=== PATIENT | female | born 1960 | race African-American/Black ===

== ENCOUNTER 2024-06-25 10:45 | Inpatient (IN) | payer MEDICARE, MEDICAID, SELFPAY ==
--- NOTE | ~2024-06-25 | MR_ITS ---
EXAMINATION: MR lumbar spine wo con DATE: 06/26/2024 07:41 INDICATION: Right lower limb radicular pain and buckling. Urinary incontinence. TECHNIQUE: Magnetic resonance imaging (MRI) of the lumbar spine was performed without intravenous con trast. Sequences included sagittal T2-weighted FSE, sagittal T2-weighted FS FSE, sagittal T1-weighted FSE, and axial T2-weighted FSE. COMPARISON: And CT dated 06/25/2024 FINDINGS: Alignment is normal. Vertebral body heights are normal. Severe disc height loss at L4-L5 with associa nessa fibrofatty degenerative endplate changes. Signal is otherwise unremarkable. Mild disc height loss at L3-L4 and L5-S1. There are annular fissure s at each of these levels. The conus medullaris terminates at L1. There is normal signal in the cauda l spinal cord. There are change of prior left hemilaminotomies at L4-L5 and L5-S1 with mild scarring in the overlying subcutaneous fat. There is no significant marrow edema at the previously noted L4 pa rs intra-articular is defects suggesting this is more chronic than suspected on the CT imaging. Parav ertebral soft tissues are otherwise unremarkable. The following disc levels are specifically discusse d: T12-L1: The disc does not extend beyond the endplate margin. There is mild left and mild to moderate right facet joint osteoarthritis. There is no neural foraminal stenosis. There is no central canal st enosis. L1-L2: The disc does not extend beyond the endplate margin. There is mild bilateral facet joint osteo arthritis. There is no neural foraminal stenosis. There is no central canal stenosis. L2-L3: Disc is mildly bulging. There is mild bilateral facet joint osteoarthritis. There is mild bila teral neural foraminal stenosis. There is minimal central canal stenosis. L3-L4: Disc is bulging. There is hypertrophy of the ligamentum flavum. There is moderate to severe bi lateral facet joint osteoarthritis. There is mild right and mild to moderate left neural foraminal st enosis. There is mild central canal stenosis. L4-L5: Disc is bulging. There is hypertrophy of the right ligamentum flavum with left-sided posterior decompression with hemilaminotomy. There is severe right and moderate to severe left facet joint ost eoarthritis. There is moderate bilateral neural foraminal stenosis. There is mild central canal steno sis. L5-S1: Disc is bulging. There is mild to moderate bilateral facet joint osteoarthritis. There is mode rate bilateral neural foraminal stenosis. Posterior decompression with left-sided hemilaminotomy. The re is mild central canal stenosis. IMPRESSION: 1. Lumbar spondylosis severe at L4-L5 and otherwise mild with left hemilaminotomies at L4-L5 and L5-S 1. 2. Left-sided L4 pars intra-articular is defects without associated marrow edema suggesting this is c hronic. Reviewed, dictated and finalized at location A. IMPRESSION: 1. Lumbar spondylosis severe at L4-L5 and otherwise mild with left hemilaminoto mies at L4-L5 and L5-S1. 2. Left-sided L4 pars intra-articular is defects without associated marrow sharif a suggesting this is chronic.
--- NOTE | ~2024-06-25 | CT_ITS ---
EXAMINATION: CT lumbar spine wo con DATE: 06/25/2024 14:37 INDICATION: Low back pain radiating down the right leg. Urinary incontinence. TECHNIQUE: Computed tomography (CT) of the lumbar spine was performed without intravenous contrast. A utomated exposure control and iterative reconstruction technique were employed. The dose-length produ ct was 1075.50 mGy-cm. COMPARISON: None FINDINGS: Alignment is normal. Vertebral body heights are normal. Acute appearing nondisplaced unilateral left sided pars interarticularis defect at L4.. Severe disc height loss with degenerative endplate changes at L4-L5. Mild disc height loss at L3-L4 and L5-S1. Moderate disc height loss with vacuum phenomena at the bilateral sacroiliac joints. There is some subarticular sclerosis and tiny erosions along the articular cortices suggesting possible inflammatory sacroiliitis. Small sliding-type hiatal hernia wi th postoperative change of prior sleeve gastrectomy with suture line along the visualized greater cur vature of the stomach. A few atherosclerotic calcifications along the bilateral renal arteries inclu ding at the right renal hilum. Multiple phleboliths along the bilateral gonadal veins. Paravertebral soft tissues are unremarkable. The following disc levels are specifically discussed: T11-T12: The disc does not extend beyond the endplate margin. There is mild bilateral facet joint ost eoarthritis. There is no neural foraminal stenosis. There is no central canal stenosis. T12-L1: The disc does not extend beyond the endplate margin. There is mild bilateral facet joint oste oarthritis. There is no neural foraminal stenosis. There is no central canal stenosis. L1-L2: The disc does not extend beyond the endplate margin. There is mild bilateral facet joint osteo arthritis. There is no neural foraminal stenosis. There is no central canal stenosis. L2-L3: Disc is bulging. There is mild bilateral facet joint osteoarthritis. There is mild bilateral n eural foraminal stenosis. There is mild central canal stenosis. L3-L4: Disc is bulging. There is moderate to severe bilateral facet joint osteoarthritis. There is mi ld to moderate bilateral neural foraminal stenosis. There is mild to moderate central canal stenosis. L4-L5: Disc is bulging. There is mild hypertrophy of the ligamentum flavum. There is severe right an d moderate to severe left facet joint osteoarthritis. There is moderate bilateral neural foraminal st enosis. There is mild central canal stenosis. L5-S1: Disc is bulging most prominent at the bilateral foraminal zones. There is mild left and mild t o moderate right facet joint osteoarthritis. There is moderate bilateral neural foraminal stenosis. T here is no central canal stenosis. IMPRESSION: 1. Severe lower cervical predominant spondylosis. 2. Acute to subacute appearing nondisplaced left-sided pars interarticularis defect at L4. 3. Symmetric moderate bilateral sacroiliitis versus sacroiliac osteoarthritis. Reviewed, dictated and finalized at location A. IMPRESSION: 1. Severe lower cervical predominant spondylosis. 2. Acute to subacute appearing nondisplaced left-sided pars interarticularis de fect at L4. 3. Symmetric moderate bilateral sacroiliitis versus sacroiliac osteoarthritis.
--- NOTE | ~2024-06-25 | US_ITS ---
EXAMINATION: US renal BI DATE: 06/28/2024 19:31 INDICATION: Renal failure. TECHNIQUE: Multiple ultrasound grayscale images of the kidneys were obtained. COMPARISON: Lumbar spine MRI 06/26/2024 FINDINGS: The right kidney measures 12.3 x 4.4 x 4.8 cm. The left kidney measures 10.7 x 5.1 x 3.9 cm. The kidn eys demonstrate normal parenchymal echogenicity. There is no hydronephrosis. The bladder is normal. IMPRESSION: 1. Normal kidneys. No hydronephrosis. Reviewed, dictated and finalized at location A.
[2024-06-25 13:02] VITALS: BP 156/67; PULSE 93; RESP 18; TEMP 36.8; O2SAT 100
[2024-06-25 13:04] VITALS: BP 156/67; PULSE 92; RESP 18; TEMP 36.8; O2SAT 100
--- NOTE | 2024-06-25 14:27 | ED.BACK ---
HPI - Back Pain/Injury General Chief Complaint: Urogenital-Female Stated Complaint: sciatic pain and loss of bladder Time Seen by Provider: 06/25/24 12:57 History of Present Illness HPI Narrative: 63-year-old female presenting with back pain. States that she has a long history of lower back pain with sciatica. States that normally it affects her left side but she recently had an injection and the side feels okay. States that her right lower back has been hurting for the last several days and shoots down her right leg. States that her leg feels like it gives out because it is so painful. States that she has also had a couple episodes of urinary incontinence. States that she feels like she needs to go and then she notices that she has already wet. Complains of chronic unchanged constipation. States that she has had some liquid stool after taking multiple laxative doses. Complains of some tingling in her right thigh but no numbness. No fevers. No further complaints. Related Data Home Medications Medication Instructions Recorded Confirmed acetaminophen 500 mg tablet 500 mg PO Q6H PRN Pain 06/25/24 06/25/24 amlodipine 10 mg tablet 10 mg PO DAILY 06/25/24 06/25/24 atorvastatin 80 mg tablet 80 mg PO DAILY 06/25/24 06/25/24 clonazepam 1 mg tablet 1 mg PO BID 06/25/24 06/25/24 duloxetine 60 mg capsule,delayed 60 mg PO DAILY 06/25/24 06/25/24 release empagliflozin 25 mg tablet 25 mg PO DAILY 06/25/24 06/25/24 (Jardiance) finerenone 10 mg tablet (Kerendia) 10 mg PO DAILY 06/25/24 06/25/24 gabapentin 300 mg capsule 300 mg PO TID 06/25/24 06/25/24 hydroxyzine HCl 25 mg tablet 25 mg PO BID 06/25/24 06/25/24 insulin glargine 100 unit/mL (3 70 unit subcut DAILY 06/25/24 06/25/24 mL) subcutaneous pen (Basaglar Bruno U-100 Insulin) linaclotide 145 mcg capsule 145 mcg PO DAILY 06/25/24 06/25/24 (Linzess) metoprolol succinate 25 mg 25 mg PO DAILY 06/25/24 06/25/24 tablet,extended release 24 hr olmesartan 40 mg tablet 40 mg PO DAILY 06/25/24 06/25/24 omeprazole 40 mg capsule,delayed 40 mg PO BID 06/25/24 06/25/24 release oxycodone-acetaminophen 10 mg-325 1 tablet PO Q6H PRN Pain 06/25/24 06/25/24 mg tablet semaglutide 0.25 mg or 0.5 mg (2 0.5 mg subcut WEEKLY 06/25/24 06/25/24 mg/3 mL) subcutaneous pen injector (HubSpot) trazodone 50 mg tablet 25 mg PO HS 06/25/24 06/25/24 triamcinolone acetonide 0.1 % 1 applic topical BID 06/25/24 06/25/24 topical cream Allergies Allergy/AdvReac Type Severity Reaction Status Date / Time No Known Allergies Allergy Verified 06/25/24 20:00 Review of Systems Review of Systems: All systems reviewed & are unremarkable except as noted in HPI and below PMFSH Family History Family History Mother Hypertension Diabetes mellitus Cerebrovascular accident Social History Social History Smoking status: Never smoker Substance use type: does not use Do You Feel Safe in your Home?: Yes Lack of Transportation: No Lack of Food: Never True Current Housing: I Have Housing Concerned About Future Housing: No Difficulty Paying Gas/Electric Bills: YES Difficulty Paying for Meds: No Currently Unemployed: No Education: High School Diploma/GED Difficulty w/ Childcare or Family Care: No Spiritual care concerns: No Exam Narrative: GENERAL: Well-appearing, in no acute distress, pleasant cooperative HEAD: Normocephalic, atraumatic. EYES: PERRLA and EOMI. ENT: Mucous membranes moist. NECK: Supple. CHEST: No respiratory distress. HEART: Regular rate and rhythm ABDOMEN: Soft, nontender, nondistended BACK: healed midline incision lumbar region; +tenderness over entire lumbar spine extending to bilateral paraspinal musculature and into R buttock EXTREMITIES: Normal range of motion SKIN: Warm, dry, no rash. NEURO: Alert and oriented x3. 5/5 streng
[2024-06-25 14:49] VITALS: BP 167/95; PULSE 79; RESP 16; O2SAT 100
[2024-06-25 15:10] LABS: Add Urine Microscopic? YES; Appearance Urine Clear (Clear); Bacteria Urine 4+ /hpf; Bilirubin Urine Negative (Negative); Blood Urine Negative (Negative); Color Urine Yellow (Yellow); Glucose Urine UA 3+ mg/dL (Negative); Ketones Urine Negative (Negative); Leukocyte Esterase Ur Negative LEU/UL (Negative); Nitrate Urine Negative (Negative); Non Pathogenic Casts 0-2; Protein Urine 3+ mg/dL (Negative); RBC Urine 0-2 /hpf (0-2); Specific Grav Ur 1.024 (1.001-1.035); Squamous Epithelial Cell Urine None Seen /hpf (Few); Urobilinogen Urine 0.2 mg/dL (<2.0); pH Urine 5.5 (5.0-9.0)
[2024-06-25] MEDS: HYDROmorphone HCL INJ (*CRX) 1 MG/ML SYR IV PUSH (15:28)
[2024-06-25] MEDS: KETOROLAC 15 MG/ML VIAL (*BKC) IV PUSH (15:31)
[2024-06-25 15:42] LABS: Basophils Percent Auto 0.5 % (0.2-1.2); Eosinophils Absolute Auto 0.2 K/mm3 (0-0.3); Eosinophils Percent Auto 3.6 % (0-4.4); Hematocrit 38.4 % (37.0-47.0); Hemoglobin 11.8 g/dL (12.0-15.0); Immature Granulocyte Absolute 0.03 K/mm3 (0.00-0.031); Immature Granulocyte Percent A 0.5 % (0-0.5); Lymphocytes Absolute Auto 1.82 K/mm3 (0.9-3.2); Lymphocytes Percent Auto 27.5 % (18.3-44.2); Mean Corpuscular HGB Conc 30.7 g/dl (32-36); Mean Corpuscular Hemoglobin 29.8 pg (26-34); Mean Platelet Volume 8.9 fl (7.4-10.4); Monocytes Absolute Auto 0.5 K/mm3 (0.1-0.6); Monocytes Percent Auto 7.4 % (2.6-8.5); Neutrophils Percent Auto 60.5 % (45.5-73.1); Platelet Count Result 227 k/mm3 (150-375); Red Blood Count 3.96 M/mm3 (4.2-5.4); Red Cell Distribution Width 12.4 % (11.5-14.5); White Blood Count 6.6 K/mm3 (4.5-10.0)
[2024-06-25 15:54] LABS: Anion Gap 5 mmol/L (4-12); Blood Urea Nitrogen 25 mg/dL (7-17); Carbon Dioxide 27 mmol/L (22-30); Chloride 105 mmol/L (98-107); Estimated CRCL calculation 28 ml/min; Estimated Glomerular Filt Rate 29; Glucose 177 mg/dL (65-110); Potassium 4.2 mmol/L (3.4-5.0); Sodium 137 mmol/L (137-145)
[2024-06-25] MEDS: ONDANSETRON INJ 4 MG/2 ML VIAL IV PUSH ×2 (16:14→22:28)
[2024-06-25] MEDS: dexAMETHasone SOD PHOS INJ 10 MG/ML 1 ML VIAL IV PUSH (17:45)
[2024-06-25] MEDS: CEPHALEXIN 500 MG CAPSULE PO (17:45)
[2024-06-25] MEDS: oxyCODONE/ACETAMINOPHEN (*CRX) 5-325 MG TABLET 1 TABLET PO (17:46)
[2024-06-25] MEDS: oxyCODONE HCL (*CRX) 5 MG TAB IR PO (17:46)
[2024-06-25 18:33] VITALS: BP 166/84; PULSE 83; RESP 15; O2SAT 100
--- NOTE | 2024-06-25 18:33 | PC.NURSE ---
Charting by Lucero Tate work study student reviewed, RN agrees
--- NOTE | 2024-06-25 19:43 | PM.IMHP ---
H&P: HPI History of Present Illness Date/Time: 06/25/24 19:43 Chief Complaint: Acute on chronic low back pain with right-sided sciatica, unable to ambulate Narrative: This is a 63-year-old female patient history of insulin-dependent diabetes with chronic kidney disease as well as chronic low back pain with sciatica who is admitted for intractable lower back pain with right leg radicular symptoms. Patient previously had injections on the left side they usually bothers her and now she is having right-sided symptoms. Patient reports that her leg has been buckling out under her causing her to fall. She says that the back pain has led to falls rather than the falls leading to the back pain. Patient also complained of urinary incontinence and chronic constipation. Emergency department discussed neuro surgery stated that patient could get MRI only should consult Neurosurgery if MRI findings were consistent with the need for intervention. Workup in the emergency department also concerning urinalysis UTI. Emergency department attempted to control patient's pain and discharge with follow-up to keep appointment with interventional pain consults but patient reported unable to ambulate despite pain control. Patient admitted for PT OT evaluation. Review of Systems Review of Systems: All systems reviewed & are unremarkable except as noted in HPI and below PMFSH Family History Family History Mother Hypertension Diabetes mellitus Cerebrovascular accident Social History Social History Smoking status: Never smoker Substance use type: does not use Do You Feel Safe in your Home?: Yes Lack of Transportation: No Lack of Food: Never True Current Housing: I Have Housing Concerned About Future Housing: No Difficulty Paying Gas/Electric Bills: YES Difficulty Paying for Meds: No Currently Unemployed: No Education: High School Diploma/GED Difficulty w/ Childcare or Family Care: No Spiritual care concerns: No Meds Home Medications and Allergies Home Medications Medication Instructions Recorded Confirmed Type acetaminophen 500 mg tablet 500 mg PO Q6H PRN Pain 06/25/24 06/25/24 History amlodipine 10 mg tablet 10 mg PO DAILY 06/25/24 06/25/24 History atorvastatin 80 mg tablet 80 mg PO DAILY 06/25/24 06/25/24 History clonazepam 1 mg tablet 1 mg PO BID 06/25/24 06/25/24 History duloxetine 60 mg capsule,delayed 60 mg PO DAILY 06/25/24 06/25/24 History release empagliflozin 25 mg tablet 25 mg PO DAILY 06/25/24 06/25/24 History (Jardiance) finerenone 10 mg tablet (Kerendia) 10 mg PO DAILY 06/25/24 06/25/24 History gabapentin 300 mg capsule 300 mg PO TID 06/25/24 06/25/24 History hydroxyzine HCl 25 mg tablet 25 mg PO BID 06/25/24 06/25/24 History insulin glargine 100 unit/mL (3 70 unit subcut DAILY 06/25/24 06/25/24 History mL) subcutaneous pen (Basaglar KwikPen U-100 Insulin) linaclotide 145 mcg capsule 145 mcg PO DAILY 06/25/24 06/25/24 History (Linzess) metoprolol succinate 25 mg 25 mg PO DAILY 06/25/24 06/25/24 History tablet,extended release 24 hr olmesartan 40 mg tablet 40 mg PO DAILY 06/25/24 06/25/24 History omeprazole 40 mg capsule,delayed 40 mg PO BID 06/25/24 06/25/24 History release oxycodone-acetaminophen 10 mg-325 1 tablet PO Q6H PRN Pain 06/25/24 06/25/24 History mg tablet semaglutide 0.25 mg or 0.5 mg (2 0.5 mg subcut WEEKLY 06/25/24 06/25/24 History mg/3 mL) subcutaneous pen injector (Ozempic) trazodone 50 mg tablet 25 mg PO HS 06/25/24 06/25/24 History triamcinolone acetonide 0.1 % 1 applic topical BID 06/25/24 06/25/24 History topical cream Allergies Allergy/AdvReac Type Severity Reaction Status Date / Time No Known Allergies Allergy Verified 06/25/24 20:00 Vital Signs Vital Signs - 24 hr 06/25/24 13:02 06/25/24 13:04 06/25/24 14:49 T
--- NOTE | 2024-06-25 20:49 | PC.NURSE ---
report given to 3rd taxation economist, all questions answered. DESIRE, AxO4. Pt transferred upstairs with [employer].
[2024-06-25 21:20] VITALS: BP 138/93; PULSE 81; RESP 18; TEMP 36; O2SAT 99
[2024-06-25 21:28] LABS: Hemoglobin A1C 7.7 % (<5.7)
--- NOTE | 2024-06-25 21:28 | ECG_ITS ---
Test Date: 2024-06-25 21:51:03 Measurements Intervals [place] Rate: 71 P: 46 TN: 144 QRS: 7 QRSD: 91 T: 36 QT: 410 QTc: 446 Interpretive Statements SINUS RHYTHM MINIMAL VOLTAGE CRITERIA FOR LVH, CONSIDER NORMAL VARIANT [MEETS CRITERIA IN ONE OF: R(aVL), S(V1), R(V5), R(V5/V6)+S(V1)] NONSPECIFIC T-WAVE ABNORMALITY ABNORMAL ECG. No previous ECG available for comparison Electronically Signed On 06-26-2024 13:50:44 CDT by Sánchez Terrazas M.D.
[2024-06-25 21:49] LABS: Glucose Point of Care 250 mg/dl (65-105)
[2024-06-25] MEDS: hydrOXYzine HCL 25 MG TABLET PO (22:29)
[2024-06-25] MEDS: oxyCODONE/ACETAMINOPHEN (*CRX) 10-325 MG TABLET 1 TAB PO (22:29)
[2024-06-25] MEDS: PANTOPRAZOLE 40 MG TABLET PO (22:29)
[2024-06-25] MEDS: clonazePAM (*CRX) 0.5 MG TABLET 1 MG PO (22:29)
[2024-06-25] MEDS: BELLADONNA ALK/PHENOB ELIX 10 ML, MAG HYDROX/ALUMINUM HYD/SIMETH 30 ML, LIDOCAINE HCL 2... PO (22:30)
[2024-06-25 22:46] LABS: Troponin I 0.014 ng/mL (0.000-0.034)
[2024-06-25] MEDS: GABAPENTIN 300 MG CAPSULE PO (23:09)
[2024-06-25] MEDS: cefTRIAXone 2 GM/NS 100 ML 2 GM/100 ML BAG IVPB (23:09)
[2024-06-26] MEDS: GABAPENTIN 300 MG CAPSULE PO ×3 (05:40→21:37)
[2024-06-26 06:00] VITALS: BP 167/91; PULSE 73; RESP 18; TEMP 36.2; O2SAT 100
[2024-06-26 07:32] LABS: Basophils Percent Auto 0.1 % (0.2-1.2); Hematocrit 41.9 % (37.0-47.0); Hemoglobin 12.7 g/dL (12.0-15.0); Immature Granulocyte Absolute 0.04 K/mm3 (0.00-0.031); Immature Granulocyte Percent A 0.5 % (0-0.5); Lymphocytes Absolute Auto 0.67 K/mm3 (0.9-3.2); Lymphocytes Percent Auto 8.9 % (18.3-44.2); Mean Corpuscular HGB Conc 30.3 g/dl (32-36); Mean Corpuscular Hemoglobin 30.1 pg (26-34); Mean Corpuscular Volume 99.3 fl (80-100); Mean Platelet Volume 8.9 fl (7.4-10.4); Monocytes Absolute Auto 0.2 K/mm3 (0.1-0.6); Monocytes Percent Auto 2.1 % (2.6-8.5); Neutrophils Absolute Auto 6.6 K/mm3 (1.3-6.7); Neutrophils Percent Auto 88.4 % (45.5-73.1); Platelet Count Result 227 k/mm3 (150-375); Red Blood Count 4.22 M/mm3 (4.2-5.4); Red Cell Distribution Width 12.3 % (11.5-14.5); White Blood Count 7.5 K/mm3 (4.5-10.0)
[2024-06-26 07:48] LABS: Alanine Aminotransferase 12 U/L (6-35); Albumin Level 3.8 g/dL (3.5-5.1); Alkaline Phosphatase 87 U/L (38-126); Anion Gap 12 mmol/L (4-12); Aspartate Amino Transferase 17 U/L (14-36); Bilirubin,Total 0.3 mg/dL (0.2-1.3); Blood Urea Nitrogen 30 mg/dL (7-17); Calcium 8.9 mg/dL (8.4-10.2); Carbon Dioxide 17 mmol/L (22-30); Chloride 106 mmol/L (98-107); Estimated CRCL calculation 25 ml/min; Estimated Glomerular Filt Rate 25; Glucose 252 mg/dL (65-110); Magnesium 2.6 mg/dL (1.6-2.3); Potassium 5.5 mmol/L (3.4-5.0); Sodium 135 mmol/L (137-145)
[2024-06-26] MEDS: clonazePAM (*CRX) 0.5 MG TABLET 1 MG PO ×2 (08:37→21:31)
[2024-06-26 08:38] VITALS: PULSE 85
[2024-06-26] MEDS: METOPROLOL SUCCINATE EXT REL 25 MG TABCR PO (08:38)
[2024-06-26] MEDS: PANTOPRAZOLE 40 MG TABLET PO ×2 (08:38→21:31)
[2024-06-26] MEDS: EMPAGLIFLOZIN 25 MG TABLET PO (08:38)
[2024-06-26] MEDS: ATORVASTATIN 40 MG TABLET 80 MG PO (08:38)
[2024-06-26] MEDS: amLODIPine BESYLATE 10 MG TABLET PO (08:38)
[2024-06-26] MEDS: LINACLOTIDE 145 MCG CAPSULE PO (08:38)
[2024-06-26] MEDS: DULoxetine HCL 60 MG CAPSULE.DR PO (08:38)
[2024-06-26] MEDS: ENOXAPARIN 30 MG/0.3 ML SYRINGE SUB-Q (08:41)
[2024-06-26] MEDS: LIDOCAINE 5% PATCH 1 PATCH TRANSDERM (08:42)
[2024-06-26] MEDS: INSULIN ASPART (*BKC) 100 UNITS/ML SUB-Q ×2 (08:46→12:21)
[2024-06-26] MEDS: INSULIN GLARGINE (*BKC) 100 UNITS/ML 70 UNITS SUB-Q (08:47)
[2024-06-26] MEDS: TRIAMCINOLONE ACET 0.1% CREAM 15 GM TUBE 1 APPLIC TOPICAL (08:48)
[2024-06-26 11:40] LABS: Glucose Point of Care 273 mg/dl (65-105)
--- NOTE | 2024-06-26 12:52 | PM.IMPN ---
Progress Note: A&P Assessment and Plan (1) Acute on chronic back pain: Code(s): M54.9 - Dorsalgia, unspecified; G89.29 - Other chronic pain Status: Acute Assessment and Plan: Symptoms consistent with right lumbar radiculopathy IV and oral pain medication PRN PT and OT consult consult neuro surgery MD CT back shows - Severe lower cervical predominant spondylosis. 2. Acute to subacute appearing nondisplaced left-sided pars interarticularis defect at L4. 3. Symmetric moderate bilateral sacroiliitis versus sacroiliac osteoarthritis. MRI back shows- Lumbar spondylosis severe at L4-L5 and otherwise mild with left hemilaminotomies at L4-L5 and L5-S1. 2. 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 (2) Urinary tract infection: Code(s): N39.0 - Urinary tract infection, site not specified Status: Acute Assessment and Plan: Patient initiated on antibiotics in the emergency department Urine culture in process. (3) Insulin dependent diabetes mellitus: Status: Acute Assessment and Plan: Hemoglobin A1c 7.7 Continue home medications High-dose sliding scale insulin Carb controlled diet (4) CKD (chronic kidney disease): Code(s): N18.9 - Chronic kidney disease, unspecified Status: Acute Assessment and Plan: Unknown baseline, Cr 2.1 eGFR 29 on ER labs Hold olmesartan Patient non-compliant with medication, has run out of [facility] for unknown time (5) Unable to ambulate: Code(s): R26.2 - Difficulty in walking, not elsewhere classified Status: Acute Assessment and Plan: Patient reports unable to ambulate due to low back pain with right radicular symptoms PT/ OT ordered Subjective Date/time seen: 06/26/24 12:52 Interval history: 63-year-old female patient history of insulin-dependent diabetes with chronic kidney disease as well as chronic low back pain with sciatica who is admitted for intractable lower back pain with right leg radicular symptoms. mri back shows - 1. Lumbar spondylosis severe at L4-L5 and otherwise mild with left hemilaminotomies at L4-L5 and L5-S1. 2. 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 Pt continues to have radicular complaints I will treat pain and consult neurosurgery MD PT/ OT ordered Review of Systems Review of Systems: Pt continues to have radicular complaints Exam Narrative: GENERAL: middle aged lady in distress HEAD: Normocephalic, atraumatic. EYES: PERRLA and EOMI. ENT: Mucous membranes moist. NECK: Supple. CHEST: No respiratory distress. HEART: Regular rate and rhythm ABDOMEN: Soft, nontender, nondistended BACK: healed midline incision lumbar region; +tenderness over entire lumbar spine extending to bilateral paraspinal musculature and into R buttock EXTREMITIES: positive straight leg test SKIN: Warm, dry, no rash. NEURO: Alert and oriented x3. 5/5 strength in BLE; no sensory deficits PSYCH: Normal mood and affect. Objective Data Vital Signs Vital Signs: Vital Signs - 24 hr 06/25/24 13:02 06/25/24 13:04 06/25/24 14:49 Temperature 36.8 C 36.8 C Pulse Rate 93 92 79 Respiratory Rate 18 18 16 Blood Pressure 156/67 H 156/67 H 167/95 H Pulse Oximetry 100 100 100 Oxygen Delivery Room Air 06/25/24 18:33 06/25/24 21:20 06/25/24 22:04 Temperature 36.0 C L Pulse Rate 83 81 Respiratory Rate 15 18 Blood Pressure 166/84 H 138/93 H Pulse Oximetry 100 99 Oxygen Delivery Room Air 06/26/24 06:00 06/26/24 08:38 06/26/24 08:00 Temperature 36.2 C L Pulse Rate 73 85 Respiratory Rate 18 Blood Pressure 167/91 H Pulse Oximetry 100 Oxygen Delivery Room Air Intake/Output Intake/Output: Intake & Output 06/23/24 06/24/24 06/25/24 06/26/24 23:59 23:59 23:59 23:59 Intake Total 400 Balance 400 Meds/Results Medications: Activ
--- NOTE | 2024-06-26 13:33 | WPDNEUROSGPN ---
Subjective Date/time seen: 06/26/24 13:33 Interval history: Contacted regarding this patient who presented overnight through the Emergency Department with back and leg pain. Pateint has a history of prior lumbar surgery, not at [facility]. She chronically follows with pain mangement. In the ED she was found to have a UTI. She has undergone CT and MR imaging of the [facility] spine that shows lumbar spondylosis with changes from the prior lumbar decompression. There are pars defects as well. There is moderate neuroforaminal stenosis at L4-5 and L5-S1 with hemilaminotomies at this level but no significant central stenosis at any level in the lumbar spine. Patient has been admitted for pain control. I see no urgent indication for surgical intervention given the relatively chronic changes on MRI and particularly given the finding of urinary tract infection. Continue with pain control including pain medication, steroids, neuropathic pain medications and muscle relaxant. It would be reasonable to seek assistance from the patient's outside pain management provider as well. My partner Dr. Gray will see the patient tomorrow and will offer additional recommendations, but even if surgery were to be considered this would be addressed on an outpatient basis. Objective Data Vital Signs Vital Signs: Vital Signs - 24 hr 06/25/24 14:49 06/25/24 18:33 06/25/24 21:20 Temperature 36.0 C L Pulse Rate 79 83 81 Respiratory Rate 16 15 18 Blood Pressure 167/95 H 166/84 H 138/93 H Pulse Oximetry 100 100 99 Oxygen Delivery 06/25/24 22:04 06/26/24 06:00 06/26/24 08:38 Temperature 36.2 C L Pulse Rate 73 85 Respiratory Rate 18 Blood Pressure 167/91 H Pulse Oximetry 100 Oxygen Delivery Room Air 06/26/24 08:00 Temperature Pulse Rate Respiratory Rate Blood Pressure Pulse Oximetry Oxygen Delivery Room Air Intake/Output Intake/Output: Intake & Output 06/23/24 06/24/24 06/25/24 06/26/24 23:59 23:59 23:59 23:59 Intake Total 400 Balance 400 Meds/Results Medications: Active Medications Generic Name Dose Route Start Last Admin Trade Name Freq PRN Reason Stop Dose Admin Acetaminophen 500 mg 06/25/24 20:33 Acetaminophen 500 Mg Tablet PO Q6H PRN Pain 1-6 Amlodipine Besylate 10 mg 06/26/24 09:00 06/26/24 08:38 Amlodipine Besylate 10 Mg Tablet PO 10 mg DAILY SERA Administration Atorvastatin Calcium 80 mg 06/26/24 09:00 06/26/24 08:38 Atorvastatin 40 Mg Tablet PO 80 mg DAILY SERA Administration Clonazepam 1 mg 06/25/24 21:00 06/26/24 08:37 Clonazepam (*Crx) 0.5 Mg Tablet PO 1 mg Q12HR SERA Administration Cyclobenzaprine HCl 5 mg 06/26/24 14:00 Cyclobenzaprine Hcl 5 Mg Tablet PO Q8HR SERA Dextrose 12.5 gm 06/25/24 20:36 Dextrose 50% 25 Gm/50 Ml Syringe IV PUSH PRN PRN Hypoglycemia Protocol Duloxetine HCl 60 mg 06/26/24 09:00 06/26/24 08:38 Duloxetine Hcl 60 Mg Capsule.Dr PO 60 mg DAILY SERA Administration Empagliflozin 25 mg 06/26/24 09:00 06/26/24 08:38 Empagliflozin 25 Mg Tablet PO 25 mg DAILY SERA Administration Enoxaparin Sodium 30 mg 06/26/24 09:00 06/26/24 08:41 Enoxaparin 30 Mg/0.3 Ml Syringe SUB-Q 30 mg DAILY SERA Administration Gabapentin 300 mg 06/25/24 22:20 06/26/24 12:21 Gabapentin 300 Mg Capsule PO 300 mg Q8HR SERA Administration Glucagon 1 mg 06/25/24 20:36 Glucagon For Inj 1 Mg Vial IM PRN PRN Hypoglycemia Protocol Glucose 15 gm 06/25/24 20:36 Glucose Oral Gel 15 Gm Of Glucse In 37.5 Gm Tube PO PRN PRN Hypoglycemia Protocol Hydromorphone HCl 1 mg 06/25/24 22:19 Hydromorphone Hcl Inj (*Crx) 1 Mg/Ml Syr IV PUSH Q4H PRN Pain Rated 7-10 Hydroxyzine HCl 25 mg 06/25/24 20:33 06/25/24 22:29 Hydroxyzine Hcl 25 Mg Tablet PO 25 mg BID PRN Administration anxiety or itching Dextrose 1,0
[2024-06-26 14:00] VITALS: BP 111/59; PULSE 67; RESP 18; TEMP 37; O2SAT 99
[2024-06-26] MEDS: CYCLOBENZAPRINE HCL 5 MG TABLET PO ×2 (15:08→21:37)
[2024-06-26] MEDS: oxyCODONE/ACETAMINOPHEN (*CRX) 10-325 MG TABLET 1 TAB PO (15:10)
[2024-06-26 17:09] LABS: Glucose Point of Care 119 mg/dl (65-105)
[2024-06-26] MEDS: traZODone HCL 25 MG TABLET PO (21:31)
[2024-06-26] MEDS: cefTRIAXone 2 GM/NS 100 ML 2 GM/100 ML BAG IVPB (21:36)
[2024-06-26 21:47] LABS: Glucose Point of Care 168 mg/dl (65-105)
[2024-06-26 22:00] VITALS: BP 115/66; PULSE 72; RESP 18; TEMP 36.7; O2SAT 99
[2024-06-27] MEDS: CYCLOBENZAPRINE HCL 5 MG TABLET PO ×3 (05:31→20:19)
[2024-06-27] MEDS: GABAPENTIN 300 MG CAPSULE PO ×3 (05:32→20:19)
[2024-06-27 06:00] VITALS: BP 149/79; PULSE 71; RESP 18; TEMP 36.6; O2SAT 100
[2024-06-27 07:59] LABS: Glucose Point of Care 89 mg/dl (65-105)
[2024-06-27 08:09] LABS: Alanine Aminotransferase 9 U/L (6-35); Albumin Level 3.3 g/dL (3.5-5.1); Alkaline Phosphatase 61 U/L (38-126); Anion Gap 6 mmol/L (4-12); Aspartate Amino Transferase 17 U/L (14-36); Basophils Percent Auto 0.2 % (0.2-1.2); Bilirubin,Total 0.2 mg/dL (0.2-1.3); Blood Urea Nitrogen 44 mg/dL (7-17); Calcium 8.2 mg/dL (8.4-10.2); Carbon Dioxide 24 mmol/L (22-30); Chloride 105 mmol/L (98-107); Eosinophils Absolute Auto 0.1 K/mm3 (0-0.3); Eosinophils Percent Auto 1.6 % (0-4.4); Estimated CRCL calculation 21 ml/min; Estimated Glomerular Filt Rate 20; Glucose 91 mg/dL (65-110); Hematocrit 36.3 % (37.0-47.0); Hemoglobin 11.1 g/dL (12.0-15.0); Immature Granulocyte Absolute 0.03 K/mm3 (0.00-0.031); Immature Granulocyte Percent A 0.3 % (0-0.5); Lymphocytes Absolute Auto 2.35 K/mm3 (0.9-3.2); Lymphocytes Percent Auto 26.8 % (18.3-44.2); Magnesium 2.5 mg/dL (1.6-2.3); Mean Corpuscular HGB Conc 30.6 g/dl (32-36); Mean Corpuscular Hemoglobin 29.7 pg (26-34); Mean Corpuscular Volume 97.1 fl (80-100); Mean Platelet Volume 9.2 fl (7.4-10.4); Monocytes Absolute Auto 0.6 K/mm3 (0.1-0.6); Monocytes Percent Auto 6.5 % (2.6-8.5); Neutrophils Absolute Auto 5.7 K/mm3 (1.3-6.7); Neutrophils Percent Auto 64.6 % (45.5-73.1); Platelet Count Result 237 k/mm3 (150-375); Potassium 4.7 mmol/L (3.4-5.0); Red Blood Count 3.74 M/mm3 (4.2-5.4); Red Cell Distribution Width 12.4 % (11.5-14.5); Sodium 135 mmol/L (137-145); White Blood Count 8.8 K/mm3 (4.5-10.0)
[2024-06-27] MEDS: clonazePAM (*CRX) 0.5 MG TABLET 1 MG PO ×2 (08:27→20:19)
[2024-06-27 08:28] VITALS: PULSE 82
[2024-06-27] MEDS: PANTOPRAZOLE 40 MG TABLET PO ×2 (08:28→20:19)
[2024-06-27] MEDS: ATORVASTATIN 40 MG TABLET 80 MG PO (08:28)
[2024-06-27] MEDS: LINACLOTIDE 145 MCG CAPSULE PO (08:28)
[2024-06-27] MEDS: LIDOCAINE 5% PATCH 1 PATCH TRANSDERM (08:28)
[2024-06-27] MEDS: EMPAGLIFLOZIN 25 MG TABLET PO (08:28)
[2024-06-27] MEDS: METOPROLOL SUCCINATE EXT REL 25 MG TABCR PO (08:28)
[2024-06-27] MEDS: DULoxetine HCL 60 MG CAPSULE.DR PO (08:29)
[2024-06-27] MEDS: ENOXAPARIN 30 MG/0.3 ML SYRINGE SUB-Q (08:30)
[2024-06-27] MEDS: TRIAMCINOLONE ACET 0.1% CREAM 15 GM TUBE 1 APPLIC TOPICAL ×2 (08:30→20:21)
[2024-06-27] MEDS: INSULIN GLARGINE (*BKC) 100 UNITS/ML 70 UNITS SUB-Q (08:30)
[2024-06-27] MEDS: amLODIPine BESYLATE 10 MG TABLET PO (08:31)
[2024-06-27 09:33] VITALS: O2SAT 100
[2024-06-27 11:39] LABS: Glucose Point of Care 130 mg/dl (65-105)
[2024-06-27] MEDS: oxyCODONE/ACETAMINOPHEN (*CRX) 10-325 MG TABLET 1 TAB PO ×2 (12:16→17:59)
[2024-06-27 14:00] VITALS: BP 104/58; PULSE 70; RESP 14; TEMP 36.6; O2SAT 97
--- NOTE | 2024-06-27 14:05 | PM.IMPN ---
Progress Note: A&P Assessment and Plan (1) Acute on chronic back pain: Code(s): M54.9 - Dorsalgia, unspecified; G89.29 - Other chronic pain Status: Acute Assessment and Plan: Symptoms consistent with right lumbar radiculopathy IV and oral pain medication PRN PT and OT consult consult neuro surgery MD CT back shows - Severe lower cervical predominant spondylosis. 2. Acute to subacute appearing nondisplaced left-sided pars interarticularis defect at L4. 3. Symmetric moderate bilateral sacroiliitis versus sacroiliac osteoarthritis. MRI back shows- Lumbar spondylosis severe at L4-L5 and otherwise mild with left hemilaminotomies at L4-L5 and L5-S1. 2. 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 (2) Urinary tract infection: Code(s): N39.0 - Urinary tract infection, site not specified Status: Acute Assessment and Plan: Patient initiated on antibiotics in the emergency department Urine culture in process. (3) Insulin dependent diabetes mellitus: Status: Acute Assessment and Plan: Hemoglobin A1c 7.7 Continue home medications High-dose sliding scale insulin Carb controlled diet (4) CKD (chronic kidney disease): Code(s): N18.9 - Chronic kidney disease, unspecified Status: Acute Assessment and Plan: Unknown baseline, Cr 2.1 eGFR 29 on ER labs Hold olmesartan Patient non-compliant with medication, has run out of [facility] for unknown time (5) Unable to ambulate: Code(s): R26.2 - Difficulty in walking, not elsewhere classified Status: Acute Assessment and Plan: Patient reports unable to ambulate due to low back pain with right radicular symptoms PT/ OT ordered Subjective Date/time seen: 06/27/24 14:05 Interval history: 63-year-old female patient history of insulin-dependent diabetes with chronic kidney disease as well as chronic low back pain with sciatica who is admitted for intractable lower back pain with right leg radicular symptoms. mri back shows - 1. Lumbar spondylosis severe at L4-L5 and otherwise mild with left hemilaminotomies at L4-L5 and L5-S1. 2. 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 06/26 Pt continues to have radicular complaints, I will treat pain and consult neurosurgery MD PT/ OT ordered 06/27 Pt awaiting further neurosurgery opinions continue pain control and PT in hospital pt still in pain Review of Systems Review of Systems: ongoing sciatic pains down leg Exam Narrative: GENERAL: middle aged lady in distress HEAD: Normocephalic, atraumatic. EYES: PERRLA and EOMI. ENT: Mucous membranes moist. NECK: Supple. CHEST: No respiratory distress. HEART: Regular rate and rhythm ABDOMEN: Soft, nontender, nondistended BACK: healed midline incision lumbar region; +tenderness over entire lumbar spine extending to bilateral paraspinal musculature and into R buttock EXTREMITIES: positive straight leg test SKIN: Warm, dry, no rash. NEURO: Alert and oriented x3. 5/5 strength in BLE; no sensory deficits PSYCH: Normal mood and affect. Objective Data Vital Signs Vital Signs: Vital Signs - 24 hr 06/26/24 14:40 06/26/24 22:00 06/27/24 06:00 Temperature 36.7 C 36.6 C Pulse Rate 72 71 Respiratory Rate 18 18 Blood Pressure 115/66 149/79 H Pulse Oximetry 99 100 Oxygen Delivery Room Air 06/27/24 08:28 06/27/24 09:33 06/27/24 08:00 Temperature Pulse Rate 82 Respiratory Rate Blood Pressure Pulse Oximetry 100 Oxygen Delivery Room Air Room Air Intake/Output Intake/Output: Intake & Output 06/24/24 06/25/24 06/26/24 06/27/24 23:59 23:59 23:59 23:59 Intake Total 2130 336 Balance 2130 336 Meds/Results Medications: Active Medications Generic Name Dose Route Start Last Admin Trade Name Freq PRN Reason Stop Dose Admin Acetaminophen 500 mg
[2024-06-27 16:41] LABS: Glucose Point of Care 134 mg/dl (65-105)
--- NOTE | 2024-06-27 17:55 | WPDNEUROSGCN ---
Assessment and Plan Assessment and plan (1) Lumbar radiculopathy: Code(s): M54.16 - Radiculopathy, lumbar region Status: Acute (2) Lumbar spondylosis: Code(s): M47.816 - Spondylosis without myelopathy or radiculopathy, lumbar region Status: Acute Plan Ms. Domingo is a 63-year-old female with history of previous left L4-5 and L5-S1 laminectomies and a long history of back and bilateral leg pain who was admitted 2 days ago for intractable right leg pain radiating in an L5 dermatome. On physical exam, she does have slight pain limited proximal weakness of the right leg but has good strength distally. I reviewed her MRI lumbar spine which shows degenerative disc disease at L4-5 and L5-S1 with moderate neuroforaminal stenosis bilaterally at L4-5, moderate left neuroforaminal stenosis at L5-S1, and severe right neuroforaminal stenosis at L5-S1. These changes are all chronic and degenerative in nature, and I do not see findings to explain her sudden exacerbation of pain. I have recommended working with physical therapy and discussing additional injections with her pain management team. I would suggest attempting a right L5-S1 transforaminal epidural steroid injection as I believe that this is the cause of her current symptoms. In the meantime, I would consider giving her a course oral steroids as well as a muscle relaxer and consider increasing her gabapentin dose to see if this can help control her pain in the meantime. I do not see any need for urgent surgical intervention. She can certainly follow up with me in clinic if desired, or she can return to Dr. Lau who did her previous surgery. Consult date: 06/27/24 HPI: Malou Domingo is a 63 year old female with history of diabetes and CKD presents to the hospital June 25 for uncontrolled back and primarily right leg pain. She has a long history of lower back issues and underwent previous surgery in the form of left L4-5 and L5-S1 hemilaminectomies with Dr. Lau at [facility] around 2019. The patient states that this was not helpful for her and actually made her pain worse. She has had ongoing low back and intermittent leg pain on both the left and right side for which she has recently been following with Pain Management. She apparently had an epidural steroid injection on the left side last week, and following the injection, she had worse pain than usual in her right leg radiating in what sounds like an L5 dermatome. She has paresthesias in a similar distribution. She feels a sense of generalized weakness but denies focal weakness in her legs. She has been voiding independently but has not had a bowel movement in 2 weeks. Normally, she takes oxycodone 10 mg once or twice a day. Review of Systems Review of Systems: All systems reviewed & are unremarkable except as noted in HPI and below PMFSH Family History Family History Mother Hypertension Diabetes mellitus Cerebrovascular accident Social History Social History Smoking status: Never smoker Substance use type: does not use Do You Feel Safe in your Home?: Yes Lack of Transportation: No Lack of Food: Never True Current Housing: I Have Housing Concerned About Future Housing: No Difficulty Paying Gas/Electric Bills: YES Difficulty Paying for Meds: No Currently Unemployed: No Education: High School Diploma/GED Difficulty w/ Childcare or Family Care: No Spiritual care concerns: No Meds Home Medications and Allergies Home Medications Medication Instructions Recorded Confirmed Type acetaminophen 500 mg tablet 500 mg PO Q6H PRN Pain 06/25/24 06/25/24 History amlodipine 10 mg tablet 10 mg PO DAILY 06/25/24 06/25/24 History atorvastatin 80 mg tablet 80 mg PO DAILY 06/25/24 06/25/24 History clonazepam 1 mg tablet 1 mg PO BID 06/25/24 06/25/24 History
[2024-06-27 20:01] LABS: Glucose Point of Care 202 mg/dl (65-105)
[2024-06-27] MEDS: traZODone HCL 25 MG TABLET PO (20:19)
[2024-06-27 20:29] VITALS: BP 94/47; PULSE 69; RESP 14; TEMP 36.5; O2SAT 96
[2024-06-27] MEDS: CEPHALEXIN 250 MG CAPSULE PO (21:18)
[2024-06-28 05:15] VITALS: BP 116/66; PULSE 72; RESP 18; TEMP 36.5; O2SAT 96
[2024-06-28] MEDS: GABAPENTIN 300 MG CAPSULE PO (06:18)
[2024-06-28] MEDS: CYCLOBENZAPRINE HCL 5 MG TABLET PO (06:18)
[2024-06-28 07:02] LABS: Basophils Percent Auto 0.1 % (0.2-1.2); Eosinophils Absolute Auto 0.2 K/mm3 (0-0.3); Eosinophils Percent Auto 2.9 % (0-4.4); Hematocrit 39.4 % (37.0-47.0); Hemoglobin 11.9 g/dL (12.0-15.0); Immature Granulocyte Absolute 0.02 K/mm3 (0.00-0.031); Immature Granulocyte Percent A 0.3 % (0-0.5); Lymphocytes Absolute Auto 2.16 K/mm3 (0.9-3.2); Lymphocytes Percent Auto 28.2 % (18.3-44.2); Mean Corpuscular HGB Conc 30.2 g/dl (32-36); Mean Corpuscular Hemoglobin 29.6 pg (26-34); Mean Platelet Volume 8.6 fl (7.4-10.4); Monocytes Absolute Auto 0.9 K/mm3 (0.1-0.6); Monocytes Percent Auto 11.5 % (2.6-8.5); Neutrophils Absolute Auto 4.4 K/mm3 (1.3-6.7); Platelet Count Result 237 k/mm3 (150-375); Red Blood Count 4.02 M/mm3 (4.2-5.4); Red Cell Distribution Width 12.6 % (11.5-14.5); White Blood Count 7.7 K/mm3 (4.5-10.0)
[2024-06-28 07:14] LABS: Anion Gap 7 mmol/L (4-12); Blood Urea Nitrogen 56 mg/dL (7-17); Carbon Dioxide 24 mmol/L (22-30); Chloride 105 mmol/L (98-107); Estimated CRCL calculation 19 ml/min; Potassium 5.1 mmol/L (3.4-5.0); Sodium 136 mmol/L (137-145)
[2024-06-28 07:15] LABS: Alanine Aminotransferase 9 U/L (6-35); Albumin Level 3.6 g/dL (3.5-5.1); Alkaline Phosphatase 69 U/L (38-126); Aspartate Amino Transferase 19 U/L (14-36); Bilirubin,Total 0.3 mg/dL (0.2-1.3); Calcium 8.5 mg/dL (8.4-10.2); Estimated Glomerular Filt Rate 18; Glucose 69 mg/dL (65-110); Magnesium 2.6 mg/dL (1.6-2.3)
[2024-06-28 07:29] LABS: Glucose Point of Care 85 mg/dl (65-105)
[2024-06-28 10:04] VITALS: PULSE 72
[2024-06-28] MEDS: CEPHALEXIN 250 MG CAPSULE PO ×2 (10:04→20:48)
[2024-06-28] MEDS: clonazePAM (*CRX) 0.5 MG TABLET 1 MG PO ×2 (10:04→20:47)
[2024-06-28] MEDS: METOPROLOL SUCCINATE EXT REL 25 MG TABCR PO (10:04)
[2024-06-28] MEDS: EMPAGLIFLOZIN 25 MG TABLET PO (10:05)
[2024-06-28] MEDS: PANTOPRAZOLE 40 MG TABLET PO ×2 (10:05→20:47)
[2024-06-28] MEDS: LINACLOTIDE 145 MCG CAPSULE PO (10:05)
[2024-06-28] MEDS: ATORVASTATIN 40 MG TABLET 80 MG PO (10:05)
[2024-06-28] MEDS: amLODIPine BESYLATE 10 MG TABLET PO (10:05)
[2024-06-28] MEDS: ENOXAPARIN 30 MG/0.3 ML SYRINGE SUB-Q (10:06)
[2024-06-28] MEDS: DULoxetine HCL 60 MG CAPSULE.DR PO (10:06)
[2024-06-28] MEDS: LIDOCAINE 5% PATCH 1 PATCH TRANSDERM (10:06)
[2024-06-28] MEDS: INSULIN GLARGINE (*BKC) 100 UNITS/ML 40 UNITS SUB-Q (10:31)
[2024-06-28 11:50] LABS: Glucose Point of Care 84 mg/dl (65-105)
--- NOTE | 2024-06-28 13:33 | PM.IMPN ---
Progress Note: A&P Assessment and Plan (1) Acute on chronic back pain: Code(s): M54.9 - Dorsalgia, unspecified; G89.29 - Other chronic pain Status: Acute (2) Urinary tract infection: Code(s): N39.0 - Urinary tract infection, site not specified Status: Acute (3) Insulin dependent diabetes mellitus: Status: Acute (4) CKD (chronic kidney disease): Code(s): N18.9 - Chronic kidney disease, unspecified Status: Acute (5) Unable to ambulate: Code(s): R26.2 - Difficulty in walking, not elsewhere classified Status: Acute Plan This is a 63-year-old female who presents with intractable lower back pain with right leg radicular symptoms. History of lumbar surgery in the past. Normally she has pain on her left side and recently had an injection which helped. She is supposed to follow-up with her pain doctor however was hurting since/several days on the right side and hence came to the ED for evaluation. She also complained of chronic constipation. No fever no chest pain or shortness of breath. Her vitals were stable in the ED evaluation. No urinary retention noted. 63-year-old female patient history of insulin-dependent diabetes with chronic kidney disease as well as chronic low back pain with sciatica who is admitted for intractable lower back pain with right leg radicular symptoms. Laboratory workup was unremarkable except for renal function does have underlying chronic kidney disease stage 3-4 with creatinine of 2.[address] lumbar showed severe lower several predominance spondylosis subacute appearing nondisplaced left sided partial interarticularis defect moderate bilateral sacroiliitis. Pain control with IV Dilaudid and oral oxycodone PT OT has been consulted Urinalysis suggestive of UTI on Keflex. Urine culture with E coli. Neurosurgery was consulted. Lumbar MRI done which showed lumbar spondylosis severe at L4-L5 and otherwise mild with left michelle laminectomies at L4-L5 and L5-S1. Left L4 pars intra-articular defect without associated marrow edema suggesting chronic. No indication for surgical intervention per Neurosurgery. Insulin-dependent diabetes mellitus A1c 7.7 BENY and CKD baseline creatinine 2.1. Hold olmesartan. Ambulatory dysfunction due to low back pain. Will add steroid pack, increase gabapentin continue on Flexeril Subjective Date/time seen: 06/28/24 13:33 Interval history: Patient continues to have right low back pain that radiates down her leg. Labs reviewed. Denies any new other complaint. Daughter at bedside. Discussed with her. Review of Systems Review of Systems: All systems reviewed & are unremarkable except as noted in HPI and below Exam Narrative: GENERAL: middle aged lady in no acute distress ambulating with walker HEAD: Normocephalic, atraumatic. EYES: PERRLA and EOMI. ENT: Mucous membranes moist. NECK: Supple. CHEST: No respiratory distress. HEART: Regular rate and rhythm ABDOMEN: Soft, nontender, nondistended BACK: healed midline incision lumbar region; +tenderness over entire lumbar spine extending to bilateral paraspinal musculature and into R buttock EXTREMITIES: No edema cyanosis or clubbing SKIN: Warm, dry, no rash. NEURO: Alert and oriented x3. 5/5 strength in BLE; no sensory deficits PSYCH: Normal mood and affect. Objective Data Vital Signs Vital Signs: Vital Signs - 24 hr 06/27/24 14:00 06/27/24 20:29 06/28/24 05:15 Temperature 97.8 F 97.7 F 97.7 F Pulse Rate 70 69 72 Respiratory Rate 14 14 18 Blood Pressure 104/58 L 94/47 L 116/66 Pulse Oximetry 97 96 96 06/28/24 10:04 Temperature Pulse Rate 72 Respiratory Rate Blood Pressure Pulse Oximetry Intake/Output Intake/Output: Intake & Output 06/25/24 06/26/24 06/27/24 06/28/24 23:59 23:59 23:59 23:59 Intake Total 2130 924 820 Balance 2130 924 820 Meds/Results Medications: Active Medications Generic Name Dose Route Start Last Ad
[2024-06-28 14:00] VITALS: BP 122/70; PULSE 80; RESP 18; TEMP 36.6; O2SAT 100
[2024-06-28 16:31] LABS: Glucose Point of Care 82 mg/dl (65-105)
[2024-06-28] MEDS: methylPREDNISolone (MEDROL) DOSEPACK 4 MG TABLETS PO ×4 (16:39→20:46)
[2024-06-28] MEDS: SODIUM CHLORIDE 0.9% IV 1,000 ML 100 ML IV CONT (16:39)
[2024-06-28 17:44] LABS: Creatinine Urine 107.4 mg/dL; Urea Random Urine 743 MG/DL
[2024-06-28 17:48] LABS: Sodium Urine Random 49 meq/L
[2024-06-28 18:36] LABS: Add Urine Microscopic? YES; Appearance Urine Cloudy (Clear); Bacteria Urine None Seen /hpf; Bilirubin Urine Negative (Negative); Blood Urine Negative (Negative); Color Urine Yellow (Yellow); Glucose Urine UA 3+ mg/dL (Negative); Ketones Urine Negative (Negative); Leukocyte Esterase Ur 1+ LEU/UL (Negative); Need Manual Microscopic Reviewed; Nitrate Urine Negative (Negative); Non Pathogenic Casts 0-2; Protein Urine 2+ mg/dL (Negative); RBC Urine 0-2 /hpf (0-2); Specific Grav Ur 1.022 (1.001-1.035); Squamous Epithelial Cell Urine Occasional /hpf (Few); Urobilinogen Urine 0.2 mg/dL (<2.0); WBC Urine 21-50 /hpf (0-3)
[2024-06-28 18:58] LABS: Eosinophil Urine None Seen % (None Seen); Urine Eos QC 2nd Tech Confirmed
[2024-06-28 20:27] LABS: Glucose Point of Care 182 mg/dl (65-105)
[2024-06-28] MEDS: traZODone HCL 25 MG TABLET PO (20:47)
[2024-06-28] MEDS: TRIAMCINOLONE ACET 0.1% CREAM 15 GM TUBE 1 APPLIC TOPICAL (20:48)
[2024-06-28 21:37] VITALS: BP 149/81; PULSE 85; RESP 18; TEMP 36.8; O2SAT 100
[2024-06-28] MEDS: GABAPENTIN 400 MG CAPSULE PO (22:24)
[2024-06-28] MEDS: CYCLOBENZAPRINE HCL 10 MG TABLET PO (22:25)
[2024-06-29] MEDS: SODIUM CHLORIDE 0.9% IV 1,000 ML 100 ML IV CONT (06:28)
[2024-06-29] MEDS: CYCLOBENZAPRINE HCL 10 MG TABLET PO ×3 (06:28→21:57)
[2024-06-29] MEDS: GABAPENTIN 400 MG CAPSULE PO ×3 (06:28→22:11)
[2024-06-29 06:30] LABS: Basophils Percent Auto 0.2 % (0.2-1.2); Eosinophils Percent Auto 0.2 % (0-4.4); Hematocrit 36.2 % (37.0-47.0); Hemoglobin 11.1 g/dL (12.0-15.0); Immature Granulocyte Absolute 0.03 K/mm3 (0.00-0.031); Immature Granulocyte Percent A 0.5 % (0-0.5); Lymphocytes Absolute Auto 0.78 K/mm3 (0.9-3.2); Lymphocytes Percent Auto 13.4 % (18.3-44.2); Mean Corpuscular HGB Conc 30.7 g/dl (32-36); Mean Corpuscular Hemoglobin 29.2 pg (26-34); Mean Corpuscular Volume 95.3 fl (80-100); Mean Platelet Volume 8.8 fl (7.4-10.4); Monocytes Absolute Auto 0.2 K/mm3 (0.1-0.6); Neutrophils Absolute Auto 4.7 K/mm3 (1.3-6.7); Neutrophils Percent Auto 81.7 % (45.5-73.1); Platelet Count Result 214 k/mm3 (150-375); White Blood Count 5.8 K/mm3 (4.5-10.0)
[2024-06-29] MEDS: methylPREDNISolone (MEDROL) DOSEPACK 4 MG TABLETS PO ×4 (06:31→21:58)
[2024-06-29 06:41] LABS: Alanine Aminotransferase 9 U/L (6-35); Albumin Level 3.4 g/dL (3.5-5.1); Alkaline Phosphatase 76 U/L (38-126); Anion Gap 5 mmol/L (4-12); Aspartate Amino Transferase 16 U/L (14-36); Bilirubin,Total 0.3 mg/dL (0.2-1.3); Blood Urea Nitrogen 49 mg/dL (7-17); Calcium 8.6 mg/dL (8.4-10.2); Carbon Dioxide 23 mmol/L (22-30); Chloride 106 mmol/L (98-107); Estimated CRCL calculation 23 ml/min; Estimated Glomerular Filt Rate 22; Glucose 131 mg/dL (65-110); Magnesium 2.4 mg/dL (1.6-2.3); Potassium 5.4 mmol/L (3.4-5.0); Sodium 134 mmol/L (137-145)
[2024-06-29 08:03] LABS: Glucose Point of Care 129 mg/dl (65-105)
[2024-06-29] MEDS: INSULIN GLARGINE (*BKC) 100 UNITS/ML 70 UNITS SUB-Q (09:52)
[2024-06-29 09:55] VITALS: PULSE 85
[2024-06-29] MEDS: DULoxetine HCL 60 MG CAPSULE.DR PO (09:55)
[2024-06-29] MEDS: PANTOPRAZOLE 40 MG TABLET PO ×2 (09:55→21:57)
[2024-06-29] MEDS: amLODIPine BESYLATE 10 MG TABLET PO (09:55)
[2024-06-29] MEDS: METOPROLOL SUCCINATE EXT REL 25 MG TABCR PO (09:55)
[2024-06-29] MEDS: ATORVASTATIN 40 MG TABLET 80 MG PO (09:55)
[2024-06-29] MEDS: clonazePAM (*CRX) 0.5 MG TABLET 1 MG PO ×2 (09:55→21:57)
[2024-06-29] MEDS: LINACLOTIDE 145 MCG CAPSULE PO (09:55)
[2024-06-29] MEDS: TRIAMCINOLONE ACET 0.1% CREAM 15 GM TUBE 1 APPLIC TOPICAL ×2 (09:57→21:57)
[2024-06-29] MEDS: polyethylene glycoL 3350 17 GM POWD.PACK PO (09:57)
[2024-06-29] MEDS: EMPAGLIFLOZIN 25 MG TABLET PO (09:58)
[2024-06-29] MEDS: ENOXAPARIN 30 MG/0.3 ML SYRINGE SUB-Q (10:08)
[2024-06-29] MEDS: LIDOCAINE 5% PATCH 1 PATCH TRANSDERM (10:13)
--- NOTE | 2024-06-29 11:13 | PM.IMPN ---
Progress Note: A&P Assessment and Plan (1) Acute on chronic back pain: Code(s): M54.9 - Dorsalgia, unspecified; G89.29 - Other chronic pain Status: Acute (2) Urinary tract infection: Code(s): N39.0 - Urinary tract infection, site not specified Status: Acute (3) Insulin dependent diabetes mellitus: Status: Acute (4) CKD (chronic kidney disease): Code(s): N18.9 - Chronic kidney disease, unspecified Status: Acute (5) Unable to ambulate: Code(s): R26.2 - Difficulty in walking, not elsewhere classified Status: Acute Plan This is a 63-year-old female who presents with intractable lower back pain with right leg radicular symptoms. History of lumbar surgery in the past. Normally she has pain on her left side and recently had an injection which helped. She is supposed to follow-up with her pain doctor however was hurting since/several days on the right side and hence came to the ED for evaluation. She also complained of chronic constipation. No fever no chest pain or shortness of breath. Her vitals were stable in the ED evaluation. No urinary retention noted. 63-year-old female patient history of insulin-dependent diabetes with chronic kidney disease as well as chronic low back pain with sciatica who is admitted for intractable lower back pain with right leg radicular symptoms. Laboratory workup was unremarkable except for renal function does have underlying chronic kidney disease stage 3-4 with creatinine of 2.1 on admission. Worsened to 3.2 during the hospital stay IV fluids started and down to 2.[address] lumbar showed severe lower several predominance spondylosis subacute appearing nondisplaced left sided partial interarticularis defect moderate bilateral sacroiliitis. Pain control with IV Dilaudid and oral oxycodone. Added steroid pack. Increase gabapentin increased Flexeril. PT OT has been consulted Urinalysis suggestive of UTI on Keflex. Urine culture with E coli. Urinalysis still positive. Switch antibiotics to IV ceftriaxone Neurosurgery was consulted. Lumbar MRI done which showed lumbar spondylosis severe at L4-L5 and otherwise mild with left michelle laminectomies at L4-L5 and L5-S1. Left L4 pars intra-articular defect without associated marrow edema suggesting chronic. No indication for surgical intervention per Neurosurgery. Insulin-dependent diabetes mellitus A1c 7.7 BENY and CKD baseline creatinine 2.1. Hold olmesartan. Creatinine bumped up to 3.2 started IV fluid. Creatinine down to 2.6 today. Urinalysis reviewed. Will slow down IV fluid recheck in a.m.. Mildly hyperkalemic will give a dose of Lokelma recheck potassium in in p.m. Ambulatory dysfunction due to low back pain. Vulvovaginitis: Will give a dose of fluconazole Subjective Date/time seen: 06/29/24 11:13 Interval history: She feels a little better today labs reviewed. No nausea vomiting. Reported to have some itching and a genital area Review of Systems Review of Systems: All systems reviewed & are unremarkable except as noted in HPI and below Exam Narrative: GENERAL: middle aged lady in no acute distress ambulating with walker HEAD: Normocephalic, atraumatic. EYES: PERRLA and EOMI. ENT: Mucous membranes moist. NECK: Supple. CHEST: No respiratory distress. HEART: Regular rate and rhythm ABDOMEN: Soft, nontender, nondistended BACK: healed midline incision lumbar region; +tenderness over entire lumbar spine extending to bilateral paraspinal musculature and into R buttock tender right trochanteric area EXTREMITIES: No edema cyanosis or clubbing SKIN: Warm, dry, no rash. NEURO: Alert and oriented x3. 5/5 strength in BLE; no sensory deficits PSYCH: Normal mood and affect. Objective Data Vital Signs Vital Signs: Vital Signs - 24 hr 06/28/24 14:00 06/28/24 21:37 06/29/24 09:55 Temperature 97.8 F 98.2 F Pulse Rate 80 85 85 Respiratory Rate 18 18 Blood Pressure 122/70 149/81 H Pul
[2024-06-29 12:06] LABS: Glucose Point of Care 125 mg/dl (65-105)
[2024-06-29] MEDS: FLUCONAZOLE 50 MG TABLET PO (12:31)
[2024-06-29] MEDS: SODIUM ZIRCONIUM CYCLOSILICATE 10 GM POWD.PACK PO (12:31)
[2024-06-29 14:00] VITALS: BP 133/64; PULSE 84; RESP 18; TEMP 36.3; O2SAT 100
[2024-06-29 16:50] LABS: Glucose Point of Care 134 mg/dl (65-105)
[2024-06-29] MEDS: oxyCODONE/ACETAMINOPHEN (*CRX) 10-325 MG TABLET 1 TAB PO ×2 (16:59→22:03)
[2024-06-29 17:12] LABS: Potassium 4.7 mmol/L (3.4-5.0)
[2024-06-29 20:15] LABS: Glucose Point of Care 214 mg/dl (65-105)
[2024-06-29 21:20] VITALS: BP 141/77; PULSE 77; RESP 20; TEMP 36.8; O2SAT 99
[2024-06-29] MEDS: traZODone HCL 25 MG TABLET PO (21:57)
[2024-06-29] MEDS: ONDANSETRON INJ 4 MG/2 ML VIAL IV PUSH (22:02)
[2024-06-30 05:32] LABS: Basophils Percent Auto 0.3 % (0.2-1.2); Eosinophils Percent Auto 0.4 % (0-4.4); Hematocrit 36.7 % (37.0-47.0); Hemoglobin 11.1 g/dL (12.0-15.0); Immature Granulocyte Absolute 0.03 K/mm3 (0.00-0.031); Immature Granulocyte Percent A 0.4 % (0-0.5); Lymphocytes Absolute Auto 1.11 K/mm3 (0.9-3.2); Lymphocytes Percent Auto 14.7 % (18.3-44.2); Mean Corpuscular HGB Conc 30.2 g/dl (32-36); Mean Corpuscular Volume 95.8 fl (80-100); Mean Platelet Volume 8.6 fl (7.4-10.4); Monocytes Absolute Auto 0.5 K/mm3 (0.1-0.6); Monocytes Percent Auto 7.1 % (2.6-8.5); Neutrophils Absolute Auto 5.8 K/mm3 (1.3-6.7); Neutrophils Percent Auto 77.1 % (45.5-73.1); Platelet Count Result 245 k/mm3 (150-375); Red Blood Count 3.83 M/mm3 (4.2-5.4); Red Cell Distribution Width 12.3 % (11.5-14.5); White Blood Count 7.6 K/mm3 (4.5-10.0)
[2024-06-30 05:36] VITALS: BP 121/68; PULSE 72; RESP 14; TEMP 36.6; O2SAT 97
[2024-06-30 05:44] LABS: Alanine Aminotransferase 10 U/L (6-35); Albumin Level 3.5 g/dL (3.5-5.1); Alkaline Phosphatase 69 U/L (38-126); Anion Gap 9 mmol/L (4-12); Aspartate Amino Transferase 15 U/L (14-36); Bilirubin,Total 0.2 mg/dL (0.2-1.3); Blood Urea Nitrogen 55 mg/dL (7-17); Calcium 8.3 mg/dL (8.4-10.2); Carbon Dioxide 21 mmol/L (22-30); Chloride 107 mmol/L (98-107); Estimated CRCL calculation 22 ml/min; Estimated Glomerular Filt Rate 21; Glucose 93 mg/dL (65-110); Magnesium 2.4 mg/dL (1.6-2.3); Potassium 5.1 mmol/L (3.4-5.0); Sodium 137 mmol/L (137-145)
[2024-06-30] MEDS: SODIUM CHLORIDE 0.9% IV 1,000 ML 50 ML IV CONT (06:33)
[2024-06-30] MEDS: GABAPENTIN 400 MG CAPSULE PO ×3 (06:33→20:47)
[2024-06-30] MEDS: CYCLOBENZAPRINE HCL 10 MG TABLET PO ×3 (06:33→20:47)
[2024-06-30 08:02] LABS: Glucose Point of Care 79 mg/dl (65-105)
[2024-06-30] MEDS: methylPREDNISolone (MEDROL) DOSEPACK 4 MG TABLETS PO ×4 (09:12→20:48)
[2024-06-30 09:14] VITALS: PULSE 72
[2024-06-30] MEDS: DULoxetine HCL 60 MG CAPSULE.DR PO (09:14)
[2024-06-30] MEDS: METOPROLOL SUCCINATE EXT REL 25 MG TABCR PO (09:14)
[2024-06-30] MEDS: EMPAGLIFLOZIN 25 MG TABLET PO (09:15)
[2024-06-30] MEDS: polyethylene glycoL 3350 17 GM POWD.PACK PO (09:15)
[2024-06-30] MEDS: PANTOPRAZOLE 40 MG TABLET PO ×2 (09:15→20:47)
[2024-06-30] MEDS: clonazePAM (*CRX) 0.5 MG TABLET 1 MG PO ×2 (09:15→20:47)
[2024-06-30] MEDS: ENOXAPARIN 30 MG/0.3 ML SYRINGE SUB-Q (09:15)
[2024-06-30] MEDS: LINACLOTIDE 145 MCG CAPSULE PO (09:15)
[2024-06-30] MEDS: ATORVASTATIN 40 MG TABLET 80 MG PO (09:15)
[2024-06-30] MEDS: amLODIPine BESYLATE 10 MG TABLET PO (09:15)
[2024-06-30] MEDS: SODIUM ZIRCONIUM CYCLOSILICATE 10 GM POWD.PACK PO (09:15)
[2024-06-30] MEDS: LIDOCAINE 5% PATCH 1 PATCH TRANSDERM (09:16)
[2024-06-30] MEDS: TRIAMCINOLONE ACET 0.1% CREAM 15 GM TUBE 1 APPLIC TOPICAL ×2 (09:16→20:48)
--- NOTE | 2024-06-30 11:08 | PM.IMPN ---
Progress Note: A&P Assessment and Plan (1) Acute on chronic back pain: Code(s): M54.9 - Dorsalgia, unspecified; G89.29 - Other chronic pain Status: Acute (2) Urinary tract infection: Code(s): N39.0 - Urinary tract infection, site not specified Status: Acute (3) Insulin dependent diabetes mellitus: Status: Acute (4) CKD (chronic kidney disease): Code(s): N18.9 - Chronic kidney disease, unspecified Status: Acute (5) Unable to ambulate: Code(s): R26.2 - Difficulty in walking, not elsewhere classified Status: Acute Plan This is a 63-year-old female who presents with intractable lower back pain with right leg radicular symptoms. History of lumbar surgery in the past. Normally she has pain on her left side and recently had an injection which helped. She is supposed to follow-up with her pain doctor however was hurting since/several days on the right side and hence came to the ED for evaluation. She also complained of chronic constipation. No fever no chest pain or shortness of breath. Her vitals were stable in the ED evaluation. No urinary retention noted. 63-year-old female patient history of insulin-dependent diabetes with chronic kidney disease as well as chronic low back pain with sciatica who is admitted for intractable lower back pain with right leg radicular symptoms. Laboratory workup was unremarkable except for renal function does have underlying chronic kidney disease stage 3-4 with creatinine of 2.1 on admission. Worsened to 3.2 during the hospital stay IV fluids started and down to 2.[address] lumbar showed severe lower several predominance spondylosis subacute appearing nondisplaced left sided partial interarticularis defect moderate bilateral sacroiliitis. Pain control with IV Dilaudid and oral oxycodone. Added steroid pack. Increase gabapentin increased Flexeril. PT OT has been consulted Urinalysis suggestive of UTI on Keflex. Urine culture with E coli. Urinalysis still positive. Switch antibiotics to IV ceftriaxone Neurosurgery was consulted. Lumbar MRI done which showed lumbar spondylosis severe at L4-L5 and otherwise mild with left michelle laminectomies at L4-L5 and L5-S1. Left L4 pars intra-articular defect without associated marrow edema suggesting chronic. No indication for surgical intervention per Neurosurgery. Insulin-dependent diabetes mellitus A1c 7.7 BENY and CKD baseline creatinine 2.1. Hold olmesartan. Creatinine bumped up to 3.2 started IV fluid. Creatinine down to 2.6 but stable today at 2.7 Urinalysis reviewed. Will stop IV fluid Mildly hyperkalemic will give a dose of Lokelma recheck potassium normal however was elevated again today. Will recheck again tomorrow likely fluctuation stable will DC home tomorrow constipation on MiraLax Linzess will add Dulcolax Ambulatory dysfunction due to low back pain. Vulvovaginitis: Received a dose of fluconazole Subjective Date/time seen: 06/30/24 11:08 Interval history: No overnight events. Patient feels better. Pain is still there but tolerable control with pain medication. Ambulated with PT Review of Systems Review of Systems: All systems reviewed & are unremarkable except as noted in HPI and below Exam Narrative: GENERAL: middle aged lady in no acute distress ambulating with walker HEAD: Normocephalic, atraumatic. EYES: PERRLA and EOMI. ENT: Mucous membranes moist. NECK: Supple. CHEST: No respiratory distress. HEART: Regular rate and rhythm ABDOMEN: Soft, nontender, nondistended BACK: healed midline incision lumbar region; +tenderness over entire lumbar spine extending to bilateral paraspinal musculature and into R buttock tender right trochanteric area EXTREMITIES: No edema cyanosis or clubbing SKIN: Warm, dry, no rash. NEURO: Alert and oriented x3. 5/5 strength in BLE; no sensory deficits PSYCH: Normal mood and affect. Objective Data Vital Signs Vital Signs: Vital Signs - 24 hr
[2024-06-30 11:30] LABS: Glucose Point of Care 105 mg/dl (65-105)
--- NOTE | 2024-06-30 12:22 | PCOTNOTE ---
Attempted to see pt for OT treatment. Pt was sleeping upon therapist arrival. Once awaken, pt declined to get out of bed for lunch and/or participate in any therapeutic activities or self care tasks. Pt states that she is very tired today and not feeling up to it. Pt was educated on the importance of at least sitting up in chair for strengthening, positioning, and skin integrity, however, pt continues to decline therapist's offer.
[2024-06-30 14:00] VITALS: BP 128/71; PULSE 82; RESP 18; TEMP 36.7; O2SAT 98
[2024-06-30] MEDS: BISACODYL 5 MG TABLET EC PO (15:23)
[2024-06-30 17:05] LABS: Glucose Point of Care 160 mg/dl (65-105)
[2024-06-30 20:00] VITALS: PULSE 82; RESP 18; O2SAT 98
[2024-06-30 20:07] LABS: Glucose Point of Care 349 mg/dl (65-105)
[2024-06-30] MEDS: traZODone HCL 25 MG TABLET PO (20:47)
[2024-06-30 21:02] VITALS: BP 126/62; PULSE 81; RESP 20; TEMP 37.1; O2SAT 99
[2024-07-01] MEDS: CYCLOBENZAPRINE HCL 10 MG TABLET PO (05:31)
[2024-07-01] MEDS: GABAPENTIN 400 MG CAPSULE PO (05:31)
[2024-07-01] MEDS: methylPREDNISolone (MEDROL) DOSEPACK 4 MG TABLETS PO ×2 (05:31→12:25)
[2024-07-01 06:00] VITALS: BP 127/71; PULSE 70; RESP 18; TEMP 36.9; O2SAT 99
[2024-07-01 06:38] LABS: Basophils Percent Auto 0.2 % (0.2-1.2); Eosinophils Percent Auto 0.3 % (0-4.4); Hematocrit 34.9 % (37.0-47.0); Hemoglobin 10.8 g/dL (12.0-15.0); Immature Granulocyte Absolute 0.04 K/mm3 (0.00-0.031); Immature Granulocyte Percent A 0.6 % (0-0.5); Lymphocytes Absolute Auto 1.14 K/mm3 (0.9-3.2); Lymphocytes Percent Auto 18.3 % (18.3-44.2); Mean Corpuscular HGB Conc 30.9 g/dl (32-36); Mean Corpuscular Hemoglobin 29.3 pg (26-34); Mean Corpuscular Volume 94.6 fl (80-100); Mean Platelet Volume 8.7 fl (7.4-10.4); Monocytes Absolute Auto 0.4 K/mm3 (0.1-0.6); Monocytes Percent Auto 7.1 % (2.6-8.5); Neutrophils Absolute Auto 4.6 K/mm3 (1.3-6.7); Neutrophils Percent Auto 73.5 % (45.5-73.1); Platelet Count Result 244 k/mm3 (150-375); Red Blood Count 3.69 M/mm3 (4.2-5.4); Red Cell Distribution Width 12.4 % (11.5-14.5); White Blood Count 6.2 K/mm3 (4.5-10.0)
[2024-07-01 06:51] LABS: Alanine Aminotransferase 12 U/L (6-35); Albumin Level 3.2 g/dL (3.5-5.1); Alkaline Phosphatase 73 U/L (38-126); Anion Gap 6 mmol/L (4-12); Aspartate Amino Transferase 17 U/L (14-36); Bilirubin,Total 0.3 mg/dL (0.2-1.3); Blood Urea Nitrogen 53 mg/dL (7-17); Calcium 8.4 mg/dL (8.4-10.2); Carbon Dioxide 23 mmol/L (22-30); Chloride 107 mmol/L (98-107); Estimated CRCL calculation 25 ml/min; Estimated Glomerular Filt Rate 25; Glucose 123 mg/dL (65-110); Magnesium 2.4 mg/dL (1.6-2.3); Potassium 5.2 mmol/L (3.4-5.0); Sodium 136 mmol/L (137-145)
[2024-07-01 07:18] LABS: Glucose Point of Care 109 mg/dl (65-105)
[2024-07-01] MEDS: LIDOCAINE 5% PATCH 1 PATCH TRANSDERM (09:30)
[2024-07-01] MEDS: SODIUM ZIRCONIUM CYCLOSILICATE 10 GM POWD.PACK PO (09:30)
[2024-07-01] MEDS: BISACODYL 5 MG TABLET EC PO (09:30)
[2024-07-01] MEDS: PANTOPRAZOLE 40 MG TABLET PO (09:31)
[2024-07-01] MEDS: EMPAGLIFLOZIN 25 MG TABLET PO (09:31)
[2024-07-01] MEDS: amLODIPine BESYLATE 10 MG TABLET PO (09:31)
[2024-07-01] MEDS: DULoxetine HCL 60 MG CAPSULE.DR PO (09:31)
[2024-07-01] MEDS: polyethylene glycoL 3350 17 GM POWD.PACK PO (09:31)
[2024-07-01] MEDS: ATORVASTATIN 40 MG TABLET 80 MG PO (09:31)
[2024-07-01] MEDS: clonazePAM (*CRX) 0.5 MG TABLET 1 MG PO (09:31)
[2024-07-01] MEDS: LINACLOTIDE 145 MCG CAPSULE PO (09:31)
[2024-07-01] MEDS: INSULIN GLARGINE (*BKC) 100 UNITS/ML 60 UNITS SUB-Q (09:34)
[2024-07-01 09:36] VITALS: PULSE 72
[2024-07-01] MEDS: METOPROLOL SUCCINATE EXT REL 25 MG TABCR PO (09:36)
[2024-07-01] MEDS: ENOXAPARIN 30 MG/0.3 ML SYRINGE SUB-Q (09:36)
[2024-07-01] MEDS: TRIAMCINOLONE ACET 0.1% CREAM 15 GM TUBE 1 APPLIC TOPICAL (09:37)
[2024-07-01 11:23] LABS: Glucose Point of Care 123 mg/dl (65-105)
--- NOTE | 2024-07-01 12:15 | PM.DS ---
DS: Admitting Diagnosis Discharge Date 07/01/2024 Admitting Diagnosis Back pain DS: Discharge Diagnosis Discharge Diagnosis (1) Acute on chronic back pain: Code(s): M54.9 - Dorsalgia, unspecified; G89.29 - Other chronic pain Status: Acute (2) Urinary tract infection: Code(s): N39.0 - Urinary tract infection, site not specified Status: Acute (3) Insulin dependent diabetes mellitus: Status: Acute (4) CKD (chronic kidney disease): Code(s): N18.9 - Chronic kidney disease, unspecified Status: Acute (5) Unable to ambulate: Code(s): R26.2 - Difficulty in walking, not elsewhere classified Status: Acute DS: Summary Hospital Course Hospital Course: This is a 63-year-old female who presents with intractable lower back pain with right leg radicular symptoms. History of lumbar surgery in the past. Normally she has pain on her left side and recently had an injection which helped. She is supposed to follow-up with her pain doctor however was hurting since/several days on the right side and hence came to the ED for evaluation. She also complained of chronic constipation. No fever no chest pain or shortness of breath. Her vitals were stable in the ED evaluation. No urinary retention noted. 63-year-old female patient history of insulin-dependent diabetes with chronic kidney disease as well as chronic low back pain with sciatica who is admitted for intractable lower back pain with right leg radicular symptoms. Laboratory workup was unremarkable except for renal function does have underlying chronic kidney disease stage 3-4 with creatinine of 2.1 on admission. Worsened to 3.2 during the hospital stay IV fluids started and down to 2.[address] lumbar showed severe lower several predominance spondylosis subacute appearing nondisplaced left sided partial interarticularis defect moderate bilateral sacroiliitis. Pain control with IV Dilaudid and oral oxycodone. Added steroid pack. Increase gabapentin increased Flexeril. Pain improved with it PT OT has been consulted and ambulated therapy Urinalysis suggestive of UTI on Keflex. Urine culture with E coli. Urinalysis still positive. Switched antibiotics to IV ceftriaxone. Completed antibiotic course during hospital stay. Neurosurgery was consulted. Lumbar MRI done which showed lumbar spondylosis severe at L4-L5 and otherwise mild with left michelle laminectomies at L4-L5 and L5-S1. Left L4 pars intra-articular defect without associated marrow edema suggesting chronic. No indication for surgical intervention per Neurosurgery. Follow-up with pain management for infection right-sided Insulin-dependent diabetes mellitus A1c 7.7 BENY and CKD baseline creatinine 2.1. Hold olmesartan. Creatinine bumped up to 3.2 started IV fluid. Creatinine down to 2.6 and fluctuating in mid 2s. Urinalysis reviewed. Persistent hyperkalemia: Treated with Lokelma intermittently constipation on MiraLax Linzess added Dulcolax Ambulatory dysfunction due to low back pain. Vulvovaginitis: Received a dose of fluconazole with resolution of symptoms Time Spent with Patient Time attestation: Total time spent providing and/or coordinating discharge services: 35 minutes Exam Narrative: GENERAL: middle aged lady in no acute distress ambulating with walker HEAD: Normocephalic, atraumatic. EYES: PERRLA and EOMI. ENT: Mucous membranes moist. NECK: Supple. CHEST: No respiratory distress. HEART: Regular rate and rhythm ABDOMEN: Soft, nontender, nondistended BACK: healed midline incision lumbar region; tenderness much improved EXTREMITIES: No edema cyanosis or clubbing SKIN: Warm, dry, no rash. NEURO: Alert and oriented x3. 5/5 strength in BLE; no sensory deficits PSYCH: Normal mood and affect. DS: Data Data Completed and Pending Labs on day of discharge: Labs from last 24 hours 07/01/24 07/01/24 07/01/24 11:21 07:11 06:30 WBC 6.2 RBC 3.69 L Hgb 10.8 L
--- NOTE | 2024-07-01 13:28 | PC.NURSE ---
Pt is A&O4 female who has participated and contributed in plan of care. Pt has reported pain, but denies need for pain medication. Pt is discharging home with [facility]. Discharge instruction were faxed at [phone] to [facility] per discharge instructions. Pt daughter came to pick pt up. Discharge instructions were reviewed with pt and family, both verbalized understanding. Pt IV was removed intact. Pt was wheeled down to personal vehicle and assisted in the car. Pt was monitored for any changes in status while here.
== END 2024-07-01 13:15 | disposition home health service (06) | DRG 552 ==
LOC: ANHED 19:44 → ANH3MEDSUR 20:30
PROVIDERS: Nurse Practitioner; Admitting Provider Internal Medicine; Emergency Provider Emergency Medicine; PCP Family Medicine; Visit Provider Internal Medicine
DX: M47.26 Other spondylosis with radiculopathy, lumbar region (principal); N39.0 Urinary tract infection, site not specified; N18.9 Chronic kidney disease, unspecified; E11.22 Type 2 diabetes mellitus with diabetic chronic kidney disease; B96.20 Unspecified Escherichia coli [E. coli] as the cause of diseases classified elsewhere; K59.00 Constipation, unspecified; M54.41 Lumbago with sciatica, right side; G89.29 Other chronic pain; Z79.4 Long term (current) use of insulin; Z91.148 Patient's other noncompliance with medication regimen for other reason
CPT/HCPCS: 36415; 72131; 72148; 76775; 80048; 80053; 81001; 82570; 82948; 83036; 83735; 84132; 84300; 84484; 84540; 85025; 85999; 87077; 87086; 87088; 87186; 93005; 96372; 96375; 96376; 97110; 97116; 97161; 97165; 97530; 97535; 99285; A9270; G0378; J0696; J1100; J1171; J1650; J1815; J1885; J2405; J7030